=== PATIENT | female | born 1965 | race Caucasian/White ===

== ENCOUNTER → 2016-10-26 | Outpatient (CLI) | payer OTHER | LOC: MW.CHFP 16:00 | PROVIDERS: ATTEND Nurse Practitioner Family | DX: Z12.4 Encounter for screening for malignant neoplasm of cervix (principal); Z00.00 Encounter for general adult medical examination without abnormal findings | CPT/HCPCS: G0145 ==

== ENCOUNTER 2024-10-31 04:12 | Emergency (ER) | payer OTHER ==
[2024-10-31] MEDS: Ketorolac 60 MG/2 ML SDV IM ONE (04:30)
== END 2024-10-31 04:50 | disposition home or self-care (01) ==
LOC: MW.ED 04:12
DX: S83.8X2A Sprain of other specified parts of left knee, initial encounter (principal); Z88.2 Allergy status to sulfonamides; Z79.899 Other long term (current) drug therapy; X58.XXXA Exposure to other specified factors, initial encounter; Y93.89 Activity, other specified
CPT/HCPCS: 96372; 99283; J1885